=== PATIENT | female | born 1940 | race African-American/Black ===

== ENCOUNTER 2016-05-25 13:39 | Emergency (ER) | payer OTHER ==
--- NOTE | 2016-05-25 15:23 | PROVIDER DOCUMENTATION ---
HPI-Musculoskeletal Pain/Inj - GENERAL Source: patient - HX OF PRESENT ILLNESS-MUSKULOSKELTAL Quality of Pain: reports: sharp Severity in ED: mild Onset/Duration: just prior to arrival Timing: still present Similar Symptoms Previously?: No Recently seen or treated by another doctor?: No - FALL INJURY Location of Pain/Injury: reports: head (forehead), face (eyes) Reason for Fall: reports: slipped Loss of Consciousness: no loss of consciousness Injury Associated Symptoms: reports: denies symptoms <Cindy Liu - Last Filed: 05/25/16 15:51> <Jeancarlos Gibbons - Last Filed: 05/25/16 16:51> - GENERAL Chief Complaint: Head Injury Stated Complaint: FALL/MARRUFO,HEAD INJURY,EYE SWOLLEN Time Seen by Provider: 05/25/16 14:20 - HX OF PRESENT ILLNESS-MUSKULOSKELTAL Nature of Presenting Problem: PT is a 75 yof who came to the ED with a cc of falling and hitting her head. Pt reports this morning she was walking to the bathroom when she slipped and fell and hit her face on the night stand. (Cindy Liu) Review of Systems - Adult - REVIEW OF SYSTEMS - ADULT Constitutional: denies: chills, fever Eyes: reports: blurred vision, other (hematoma on left eye). denies: decreased vision, double vision Ears, Nose, Mouth & Throat: denies: sinus problem, mouth/dental pain Musculoskeletal: reports: other (hemotoma on forehead). denies: joint swelling , muscle aches <Cindy Liu - Last Filed: 05/25/16 15:51> Past History - Adult - PAST MEDICAL HISTORY-ADULT Review of Records: reports: Old Records Reviewed, Nursing Assessment Review Major Childhood Illnesses: reports: denies history Cardiovascular: reports: CAD, HTN, hyperlipidemia Respiratory: reports: sleep apnea Gastrointestinal: reports: GERD Neurological: reports: TIA Psychiatric: reports: anxiety, depression Endocrine/Immune: reports: Diabetes, thyroid disorder (hypo) - PRIOR SURGERIES/PROCEDURES Surgical/Procedure History: reports: recent surgery (parathyroid), CABG, cholecystectomy, cardiac stent, hysterectomy, breast (reduction) - IMMUNIZATION STATUS Childhood Immunizations: See Nurse Assessment Flu Vaccine: See Nurse Assessment <Cindy Liu - Last Filed: 05/25/16 15:51> Physical Exam-Injury Related - Physical Exam-Injury Related Initial Vital Signs Reviewed: Yes General Appearance: alert, no apparent distress Eyes: other (hematoma on left eye) Head, Ears, Nose, Mouth & Throat: other (hematoma on middle of forehead) Neck: non-tender, full range of motion Respiratory: chest non-tender, lungs clear Cardiovascular: normal peripheral pulses, regular rate, rhythm Abdominal Exam: normal bowel sounds, non tender Back Exam: normal inspection Extremity: normal range of motion, non-tender Integumentary: warm/dry Neurologic: grossly normal Psych/Mental Status: normal mood/affect, normal thought content, normal thought process, oriented x 3 <Cindy Liu - Last Filed: 05/25/16 15:51> Progress - CT/MRI 1 CT Study: Head (frontal scalp hematoma) <Cindy Liu - Last Filed: 05/25/16 15:51> <Jeancarlos Gibbons - Last Filed: 05/25/16 16:51> - PLAN OF CARE/RESULTS Progress/Plan/Lab Results: Vital Signs - 24 hr 05/25/16 13:50 Temperature 97.8 F Pulse Rate 78 Respiratory 20 Rate Blood Pressure 120/99 O2 Sat by Pulse 98 Oximetry Orders Category Date Time Status HEAD W/O CONTRAST [CT] Stat Exams 05/25/16 14:24 Taken CBC WITH ELECTRONIC DIFF [HEME] Stat Lab 05/25/16 14:25 Uncollected CMP [COMPREHENSIVE METABOLIC PANEL] [CHEM] Stat Lab 05/25/16 14:25 Uncollected (Cindy Liu) Departure - Departure Time of Disposition Order: 15:51 Certified Medical Emergency: Emergent <Cindy Liu - Last Filed: 05/25/16 15:51> - Departure Time of Disposition Order: 16:51 Certified Medical Emergency: Emergent <Jeancarlos Gibbons - Last Filed: 05/25/16 16:51> - Departure DIAGNOSIS: Black eye of left side Hematoma of frontal scalp Qualifiers: Encounter type: initial encounter Qualified Code(s): S00.03XA - Contusion of scalp, initial encounter Disposition: HOME 01 Condition: Stable Referrals: Abdoul Allen CRNP [Primary Care Provider] - Attestation - Scribe Verification/Attestation Scribe:: Cindy Liu Acting as Scribe for:: Jeancarlos Gibbons Scribe documention review:: This chart was documented by a scribe and accurately reflects the service the provider performed and the decisions made by the provider. <Cindy Liu - Last Filed: 05/25/16 15:51> Physician Attestation
--- NOTE | 2016-05-25 15:37 | Diag Imaging Result Document ---
PROCEDURE NAME: HEAD W/O CONTRAST - 05/25/2016 CT HEAD WITHOUT CONTRAST: COMPARISON: 02/24/2010. FINDINGS: There is patchy low attenuation in the periventricular and subcortical white matter that is stable indicating moderate microangiopathy. There is no discrete intracranial mass, mass effect, or intracranial hemorrhage. There is no hydrocephalus. There is no evidence of acute infarct. There is a subgaleal hematoma involving the scalp at the forehead. The calvaria is grossly intact. IMPRESSION: 1. Stable chronic changes as described, but no evidence of acute intracranial pathology. 2. Frontal scalp hematoma.
[2016-05-25] MEDS ORDERED: TYLENOL PO ONE (16:03)
[2016-05-25 16:13] LABS: MANUAL DIFF NEEDED? NO
[2016-05-25] MEDS ORDERED: TYLENOL ONE (16:23)
[2016-05-25 16:27] LABS: BASO% 0.2 % (0.0-0.8); EOS# 0.16 X1000 (0.0-0.7); EOS% 1.7 % (0.0-10.0); HEMATOCRIT 40.4 % (37.0-47.0); HEMOGLOBIN 13.2 g/dL (12.0-16.0); IMM GRAN# 0.02 X1000 (0.0-0.04); IMM GRAN% 0.2 % (0.0-0.5); LYMPH# 1.87 X1000 (1.2-3.4); LYMPH% 19.9 % (20.5-51.1); MCH 31.3 PG (27-31); MCHC 32.7 g/dL (33-37); MCV 95.7 FL (81-99); MONO# 0.71 X1000 (0.11-0.59); MONO% 7.6 % (1.7-9.3); MPV 11.3 FL (7.4-10.4); NEUT% 70.4 % (42.2-75.2); PLT 205 X1000 (130-400); RBC 4.22 XMIL (4.2-5.4)
[2016-05-25 16:40] LABS: ALBUMIN 3.6 g/dL (3.5-5.0); CALCIUM 8.9 mg/dL (8.8-10.2); POTASSIUM 3.7 mmol/L (3.5-5.1); TOTAL BILIRUBIN 0.42 mg/dL (0.20-1.00); TOTAL PROTEIN 6.1 g/dL (6.3-8.3)
[2016-05-25 17:03] VITALS: BP 188/88
== END 2016-05-25 17:24 | disposition home or self-care (01) ==
LOC: ED 13:39
DX: S00.03XA Contusion of scalp, initial encounter (principal); S00.12XA Contusion of left eyelid and periocular area, initial encounter; R51 Headache; R22.0 Localized swelling, mass and lump, head; I25.10 Atherosclerotic heart disease of native coronary artery without angina pectoris; I10 Essential (primary) hypertension; E78.5 Hyperlipidemia, unspecified; K21.9 Gastro-esophageal reflux disease without esophagitis; Z79.899 Other long term (current) drug therapy; E11.9 Type 2 diabetes mellitus without complications; E03.9 Hypothyroidism, unspecified; Z79.02 Long term (current) use of antithrombotics/antiplatelets; Z79.4 Long term (current) use of insulin; Z95.1 Presence of aortocoronary bypass graft; Z95.5 Presence of coronary angioplasty implant and graft; W01.190A Fall on same level from slipping, tripping and stumbling with subsequent striking against furniture, initial encounter
CPT/HCPCS: 70450; 80053; 85025

== ENCOUNTER 2016-11-25 22:46 | Inpatient (IN) ==
[2016-11-25 23:56] LABS: URINE CULTURE NEEDED? NO; URINE MICRO REVIEW NEEDED? NO; URINE SOURCE CLEAN CATCH
[2016-11-26 00:26] LABS: BILIRUBIN URINE NEGATIVE (NEGATIVE); BLOOD URINE NEGATIVE (NEGATIVE); COLOR YELLOW; GLUCOSE URINE 70 mg/dL (NEGATIVE); LEUKOCYTES URINE NEGATIVE (NEGATIVE); NITRITE URINE NEGATIVE (NEGATIVE); PH URINE 6.5; PROTEIN URINE NEGATIVE (NEGATIVE); SP GRAVITY URINE 1.007; TURBIDITY URINE CLEAR (CLEAR); UR EPITHELIAL CELLS <10 /HPF (<10); URINE BACTERIA NEGATIVE /HPF; URINE RBC <10 /HPF (<10); URINE WBC <10 /HPF (<10); UROBILINOGEN URINE NORMAL (NORMAL)
[2016-11-26 00:40] LABS: UR AMPHETAMINES QUAL NONE DETECTED (NONE DETECT); UR BARBITUATES QUAL NONE DETECTED (NONE DETECT); UR BENZODIAZEPIN QUAL NONE DETECTED (NONE DETECT); UR CANNABINOIDS QUAL NONE DETECTED (NONE DETECT); UR COCAINE QUAL NONE DETECTED (NONE DETECT); UR METHADONE QUAL NONE DETECTED (NONE DETECT); UR OPIATES QUAL NONE DETECTED (NONE DETECT); UR OXYCODONE QUAL NONE DETECTED (NONE DETECT); UR PCP QUAL NONE DETECTED (NONE DETECT)
[2016-11-26 00:50] LABS: MANUAL DIFF NEEDED? NO
[2016-11-26 00:55] LABS: BASO% 0.1 % (0.0-0.8); EOS# 0.09 X1000 (0.0-0.7); EOS% 0.8 % (0.0-10.0); HEMATOCRIT 40.6 % (37.0-47.0); HEMOGLOBIN 13.5 g/dL (12.0-16.0); IMM GRAN# 0.03 X1000 (0.0-0.04); IMM GRAN% 0.3 % (0.0-0.5); LYMPH# 1.74 X1000 (1.2-3.4); MCH 31.5 PG (27-31); MCHC 33.3 g/dL (33-37); MCV 94.6 FL (81-99); MONO# 0.76 X1000 (0.11-0.59); MPV 11.8 FL (7.4-10.4); NEUT% 75.8 % (42.2-75.2); PLT 221 X1000 (130-400); RBC 4.29 XMIL (4.2-5.4)
[2016-11-26 01:04] LABS: PROTIME 10.5 Seconds (9.2-11.7); PTT 22.7 Seconds (22.0-36.0)
--- NOTE | 2016-11-26 04:06 | PROVIDER DOCUMENTATION ---
This chart was entered by Madonna Malik Scribe, acting as scribe for John De La O MD. HPI-Neurological Disorder - General Chief Complaint: General Adult Stated Complaint: HYPOGLYCEMIA Time Seen by Provider: 11/25/16 22:57 Source: patient Allergies/Adverse Reactions: Patient Allergies Allergy/AdvReac Type Severity Reaction Status Date / Time Penicillins Allergy ITCHING Verified 07/25/15 06:34 Home Medications: Home Medication List Medication Instructions Recorded Confirmed Last Taken Type Atorvastatin Calcium 20 mg PO QHS 09/14/13 05/25/16 05/24/16 20:00 History Levothyroxine Sodium [Synthroid] 125 mcg PO DAILY 09/14/13 05/25/16 05/24/16 08: 00 History Losartan [Cozaar] 100 mg PO DAILY 09/14/13 05/25/16 05/24/16 08:00 History Pantoprazole [Protonix] 100 mg PO DAILY 09/14/13 05/25/16 05/24/16 08:00 History Clopidogrel Bisulfate [Plavix] 75 mg PO QAM 12/18/13 05/25/16 05/24/16 08:00 History Acetaminophen [Tylenol] 650 mg PO Q6H PRN PRN #0 tablet 01/30/15 05/25/16 Rx Insulin Aspart [Novolog] 25.2 unit SQ DAILY 04/23/15 05/25/16 05/25/16 08:00 History Isosorbide Mononitrate E.r. [Imdur] 60 mg PO DAILY #0 tablet 07/26/15 05/25/16 05/24/16 08:00 Rx Ranolazine E.r. [Ranexa] 500 mg PO BID #0 tablet 07/26/15 05/25/16 05/24/16 20: 00 Rx Carvedilol [Coreg] 12.5 mg PO BID 05/25/16 05/25/16 05/24/16 08:00 History Cholecalciferol (Vitamin D3) 2,000 unit PO DAILY 05/25/16 05/25/16 05/24/16 08: 00 History [Vitamin D3] Gabapentin 100 mg PO Q6HR 05/25/16 05/25/16 05/24/16 20:00 History Memantine HCl [Namenda] 25 mg PO DAILY 05/25/16 05/25/16 05/24/16 08:00 History - History of Present Illness-Neuro Nature of Presenting Problem: 76 Y/O F presents to ED with Neurological. Pt states that she had numbness on her right side , states that yesterday she had pain in neck that radiated into her head, around 6pm went away and come back. Pt had a reported Low glucose of 52 in EMS. Pt states that she had a headache, has prescription for Tramadol and took it. Pt c/o of blurred vision, no photophobia or slurred speech. Pt has a hx of TIA's states balance issues. Pt states that her rt leg is numb and rt arm is tingling with numbness. Pt states that she takes an 81 mg Aspirin a day. Headache Location: reports: frontal Severity: reports: moderate Onset/Duration: reports: this evening Timing: reports: still present Context: reports: low blood sugar Character of Altered Mental Status: reports: N/A Character of Deficits: reports: new weakness New weakness or altered sensation location:: reports: RUE, RLE Cognitive Baseline: alert, oriented x3 Gait Baseline: walks without assistance Associated Symptoms: reports: headache, neck/back pain, weakness. denies: nausea, vomiting Similar Symptoms Previously?: Yes Recently seen or treated by another doctor?: No Review of Systems - Adult - REVIEW OF SYSTEMS - ADULT Constitutional: denies: chills, fever Eyes: reports: no symptoms reported Ears, Nose, Mouth & Throat: reports: no symptoms reported Cardiovascular: reports: no symptoms reported Respiratory: reports: no symptoms reported Gastrointestinal: reports: no symptoms reported Genitourinary: reports: no symptoms reported Musculoskeletal: reports: no symptoms reported Integumentary: reports: no symptoms reported Neurological: reports: headache/migraines, numbness. denies: slurred speech Psychiatric: reports: no symptoms reported Endocrine: reports: no symptoms reported Hematologic/Lymphatic: reports: no symptoms reported Allergic/Immunologic: reports: no symptoms reported All Other Systems: Reviewed and Negative Past History - Adult - PAST MEDICAL HISTORY-ADULT Review of Records: reports: Old Records Reviewed, Nursing Assessment Review, Medications Reviewed, Social history reviewed & non-contributory. Major Childhood Illnesses: reports: denies history Cardiovascular: reports: CAD, HTN, hyperlipidemia Respiratory: reports: sleep apnea Gastrointestinal: reports: GERD Neurological: reports: TIA Psychiatric: reports: anxiety, depression Endocrine/Immune: reports: Diabetes, thyroid disorder (hypo) - PRIOR SURGERIES/PROCEDURES Surgical/Procedure History: reports: recent surgery (parathyroid), CABG, cholecystectomy, cardiac stent, hysterectomy, breast (reduction) - IMMUNIZATION STATUS Childhood Immunizations: See Nurse Assessment Flu Vaccine: See Nurse Assessment - SOCIAL HISTORY Smoking: non-smoker Substance Use: none/never Alcohol Use Frequency: never Physical Exam- Neurological - Physical Exam-Neuro General Appearance: alert, no apparent distress Eye Exam: bilateral eye: normal inspection, PERRL, EOMI HENMT: moist mucous membranes, normal ENT inspection, TMs normal, pharynx normal Head Injury: no evidence of injury Neck: full range of motion, supple, normal inspection, other (tender lymphnodes) Respiratory: chest non-tender, lungs clear, normal breath sounds Cardiovascular: normal peripheral pulses, regular rate, rhythm, no edema, no gallop, no JVD, no murmur Abdominal Exam: normal bowel sounds, non tender, soft Lymphatic: no adenopathy Extremity: normal range of motion, non-tender, 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 negative: abnormal speech, facial asymmetry, facial droop, facial paresthesias, facial weakness, gaze palsy , hearing deficit (R), hearing deficit (L), tongue deviation to R, tongue deviation to L Coordination/Gait: normal finger to nose, normal gait Motor/Sensory: sensory deficit (right side laterally), weak motor strength RUE, weak motor strength RLE Neurologic: grossly normal Integumentary: normal color, normal turgor, warm/dry Psych/Mental Status: normal mood/affect, normal thought content, normal thought process, oriented x 3 - Glascow Coma Scale Best Eye Response: (4) open spontaneously Best Verbal Response: (5) oriented Best Motor Response: (6) obeys commands Total Glascow Score: 15 Progress - PLAN OF CARE/RESULTS Progress/Plan/Lab Results: Vital Signs - 8 hr 11/25/16 23:10 11/26/16 01:12 Temperature 97.8 F Pulse Rate 60 61 Respiratory Rate 15 13 Blood Pressure 102/52 119/58 O2 Sat by Pulse Oximetry 100 91 L Laboratory Results - last 24 hr 11/25/16 11/25/16 11/25/16 23:00 23:00 23:08 WBC RBC Hgb Hct MCV MCH MCHC RDW Std Deviation Plt Count MPV Immature Gran % (Auto) Neut % (Auto) Lymph % (Auto) [place] % (Auto) Eos % (Auto) Baso % (Auto) Immature Gran # (Auto) Neut # (Auto) Lymph # (Auto) [place] # (Auto) Eos # (Auto) Baso # (Auto) PT INR PTT (Actin FS) POC Glucose 87 Urine Source CLEAN CATCH Urine Color YELLOW Urine Turbidity CLEAR Urine pH 6.5 Ur Specific [place] 1.007 Urine Protein NEGATIVE Ur Glucose (Stick) 70 A Ur Ketones (Stick) NEGATIVE Urine Blood NEGATIVE Urine Nitrite NEGATIVE Urine Bilirubin NEGATIVE Urobilinogen Dipstick NORMAL Urine Leukocytes NEGATIVE Urine WBC (Auto) <10 Urine RBC (Auto) <10 U Epithel Cells (Auto) <10 Urine Bacteria (Auto) NEGATIVE Urine Opiates Screen NONE DETECTED Ur Oxycodone Screen NONE DETECTED Ur Methadone, Qual NONE DETECTED Ur Barbiturates Screen NONE DETECTED Ur Phencyclidine Scrn NONE DETECTED Ur Amphetamines Screen NONE DETECTED U Benzodiazepines Scrn NONE DETECTED Urine Cocaine Screen NONE DETECTED U Cannabinoids Screen NONE DETECTED 11/26/16 11/26/16 00:40 00:40 WBC 10.90 H RBC 4.29 Hgb 13.5 Hct 40.6 MCV 94.6 MCH 31.5 H MCHC 33.3 RDW Std Deviation 12.7 Plt Count 221 MPV 11.8 H Immature Gran % (Auto) 0.3 Neut % (Auto) 75.8 H Lymph % (Auto) 16.0 L [place] % (Auto) 7.0 Eos % (Auto) 0.8 Baso % (Auto) 0.1 Immature Gran # (Auto) 0.03 Neut # (Auto) 8.27 H Lymph # (Auto) 1.74 [place] # (Auto) 0.76 H Eos # (Auto) 0.09 Baso # (Auto) 0.01 PT 10.5 INR 1.00 PTT (Actin FS) 22.7 POC Glucose Urine Source Urine Color Urine Turbidity Urine pH Ur Specific [place] Urine Protein Ur Glucose (Stick) Ur Ketones (Stick) Urine Blood Urine Nitrite Urine Bilirubin Urobilinogen Dipstick Urine Leukocytes Urine WBC (Auto) Urine RBC (Auto) U Epithel Cells (Auto) Urine Bacteria (Auto) Urine Opiates Screen Ur Oxycodone Screen Ur Methadone, Qual Ur Barbiturates Screen Ur Phencyclidine Scrn Ur Amphetamines Screen U Benzodiazepines Scrn Urine Cocaine Screen U Cannabinoids Screen Orders Category Date Time Status Cardiac Monitoring DIRECTED Care 11/25/16 23:46 Active Finger Stick Blood Sugar (ED) DIRECTED Care 11/25/16 23:46 Active Saline Loc NOW Care 11/25/16 23:46 Active CHEST-PORTABLE [RAD] Stat Exams 11/26/16 00:[address] HEAD W/O CONTRAST [CT] Stat Exams 11/25/16 23:46 Taken CBC WITH ELECTRONIC DIFF [HEME] Stat Lab 11/26/16 00:40 Completed COMPREHENSIVE METABOLIC PANEL [CHEM] Stat Lab 11/26/16 00:40 Received PROTIME WITH INR [COAG] Stat Lab 11/26/16 00:40 Completed PTT [COAG] Stat Lab 11/26/16 00:40 Completed TROPONIN T Stat Lab 11/26/16 00:40 Received URINALYSIS W/POSS RFLX CULT-1 [URINALYSIS] Stat Lab 11/25/16 23:00 Completed URINE DRUG SCREEN Stat Lab 11/25/16 23:00 Completed EKG [EKG] Stat Ther 11/25/16 23:46 Ordered Result Diagrams: 11/26/16 00:40 - EKG 1 Time of EKG reading by physician:: 22:54 EKG Read and Signed by:: John De La O EKG Interpretation (*Must complete 3 of following elements*): Normal Rate: 61 Rhythm: NSR Comments: Abnormal ECG, Possible left atrial enlargment, ST&T wave abnormality - CT/MRI 1 CT Study: Head Impression: Normal CT Results: No acute findings Departure - Departure Date of Disposition Decision: 11/26/16 Time of Disposition Decision: 03:00 DIAGNOSIS: CVA (cerebral vascular accident) Qualifiers: CVA mechanism: unspecified Qualified Code(s): I63.9 - Cerebral infarction, unspecified Disposition: ADMITTED INPATIENT 09 Certified Medical Emergency: Emergent Condition: Fair Referrals and Follow-Ups: None,PCP [Primary Care Provider] - - Critical Care Note This patient required my direct & personal management of CC.: No Attestation - Physician/ ARAM Attestation Patient care was provided by Advanced Practice Provider:: No The physician spent face to face time with patient:: Yes Advanced Practice Provider documentation review:: Supervising physician onsite and consulted in the evaluation and care of this patient. The physician did have a face to face encounter with the patient. This chart was documented by the indicated scribe, (Madonna Malik Scribe) and accurately reflects the services I performed and decisions made by me, John De La O MD, as attested by the provider's signature.
[2016-11-26 04:16] LABS: ALBUMIN 4.2 g/dL (3.5-5.0); POTASSIUM 4.2 mmol/L (3.5-5.1); TOTAL BILIRUBIN 0.47 mg/dL (0.20-1.00); TOTAL PROTEIN 7.1 g/dL (6.3-8.3)
--- NOTE | 2016-11-26 05:19 | EKG Report ---
Test Performed on : 11/25/2016 10:54:00 PM Test Reason : Stroke like symptoms Blood Pressure : / mmHG Vent. Rate : 061 BPM Atrial Rate : 061 BPM P-R Int : 166 ms QRS Dur : 094 ms QT Int : 454 ms P-R-T Axes : 038 035 100 degrees QTc Int : 457 ms Normal sinus rhythm. Possible Left atrial enlargement ST \T\ T wave abnormality, consider lateral ischemia Abnormal ECG When compared with ECG of 26-JUL-2015 07:45, T wave inversion less evident in Anterior leads Unconfirmed Result
[2016-11-26] MEDS ORDERED: TYLENOL PO PRN (06:33)
[2016-11-26] MEDS ORDERED: ULTRAM PO PRN (06:34)
[2016-11-26] MEDS ORDERED: D50W SYRINGE IV PRN (06:35)
[2016-11-26] MEDS ORDERED: ZOFRAN IV PRN (06:36)
--- NOTE | 2016-11-26 06:44 | EKG Report ---
Test Performed on : 11/26/2016 06:23:35 AM Test Reason : r/o tia Blood Pressure : / mmHG Vent. Rate : 072 BPM Atrial Rate : 072 BPM P-R Int : 168 ms QRS Dur : 094 ms QT Int : 446 ms P-R-T Axes : 045 070 058 degrees QTc Int : 488 ms Normal sinus rhythm. Nonspecific ST abnormality Abnormal ECG When compared with ECG of 25-NOV-2016 22:54, (Unconfirmed) T wave inversion no longer evident in Anterolateral leads Confirmed by Filemon Gibbs MD ([id number]) on 11/26/2016 7:02:12 PM
--- NOTE | 2016-11-26 06:45 | HISTORY AND PHYSICAL ---
CHIEF COMPLAINT: Right-sided neck pain with headache. PRIMARY CARE DOCTOR: None at this time. PRIMARY NEUROLOGIST: Is Dr. Bellamy. HPI: Ms. Cr is a very pleasant 76-year-old, female who presented to the emergency room tonight after the day before yesterday having right neck pain that radiated up into her head causing a headache. It was a constant, sharp 6/10 pain that was worse with turning her head. The headache was noted as a dull something type headache, radiating to head with a headache. She took an Ultram 50 mg and this relieved the pain. Today, she woke up and went to work where she works just a few hours a day at [employer]. She stated when she got home the pain started again in her right-sided neck again radiating into her head. This time accompanied with blurred vision and numbness in her right leg and right arm. So , she came into the emergency room. In the emergency room a CT of her head was obtained, which was read by the ER provider as NAD. She has a history of diabetes mellitus type 1, chronic kidney disease, hypertension, hyperlipidemia, hypothyroidism, coronary artery disease status post quadruple bypass and cardiac stenting x2, congestive heart failure. Unknown what her ejection fraction is at this time as well as, TIA x2. So it is concerning that this patient has had these type of symptoms. The laboratory data was obtained which was grossly normal. The patient's BUN and creatinine was noted to be elevated however I believe at her baseline of 24 and 1.5 but as noted, she does have a diagnosis of chronic kidney disease. Her glucose was also noted as being 42. She is diabetic and it was unknown if she recognized that her blood sugar was low before coming in. At any rate, her pain has subsided at this time. It was tender to palpation on the examination in the side of the C-spine or the trapezius muscle on the right side. She denied any kind of trauma or lifting anything heavy prior to these incidents. The patient will be admitted to the medical floor for further evaluation and treatment. PAST MEDICAL HISTORY: See HPI. PREVIOUS SURGICAL HISTORY: 1. A quadruple bypass. 2. Cardiac stenting x2. 3. Partial parathyroidectomy. 4. Thyroid cyst removal. 5. Cholecystectomy. 6. D and C x2. 7. Hysterectomy. SOCIAL HISTORY: Lives home alone with 1 dog. She works at [employer] limited hours daily. Denies tobacco, alcohol or illicit drug use or abuse. FAMILY HISTORY: Mother had multiple CVAs but ultimately in her 90s from a CVA. Father had congestive heart failure and from this. ALLERGIES: Penicillin causing rash. HOME MEDICATIONS: The list was not fully compiled however home medications the patient does take is Ultram 50 mg p.o. q.6 p.r.n. pain, Plavix 75 mg daily p.o., aspirin 81 mg p.o. daily and Synthroid 125 mcg daily p.o. An order was placed for nursing to reconcile full list of patient's home medications and place on the chart for rounding a.m. physician. REVIEW OF SYSTEMS: Fourteen point review of systems conducted with the patient. Pertinent positives listed above in the HPI. All other systems reviewed and found to be negative. PHYSICAL EXAMINATION: VITAL SIGNS: Temperature 97.8 degrees, pulse 61, blood pressure 102/52, oxygen saturation 100% on room air. GENERAL: Very pleasant, 76-year-old female, well developed, well nourished, lying in the ER stretcher. Answers all questions appropriately. HEENT: Head is atraumatic, normocephalic. Pupils equal, round, reactive to light. Extraocular eye movement intact. Sclerae is anicteric. Subconjunctival is pink. Oral mucosa is moist. NECK: Supple. No JVD. No thyromegaly. Trachea is midline. No cervical lymphadenopathy. CARDIAC: S1, S2 appreciated. No murmurs, gallops, or rubs. LUNGS: Clear to auscultation bilaterally. No rhonchi, wheezes or rales. Symmetrical rise and fall with respirations. ABDOMEN: Soft, nondistended, nontender. Bowel sounds present in all 4 quadrants. Normoactive. No pulsatile mass. No organomegaly. EXTREMITIES: No clubbing, cyanosis, 2+ pitting edema bilateral lower extremities. 1+ pedal pulses bilaterally. NEUROLOGICAL: Awake, alert and oriented x3. Answers all questions appropriately. Cranial nerves 2-12 are intact. Right-sided upper extremity strength 3/5. Left upper extremity strength 5/5. 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 Face is noted to be symmetrical. No palmar drift. LABORATORY DATA: WBC 10.90, hemoglobin 13.5, hematocrit 40.6, platelet count 221,000. Coags within normal limits. Sodium 145, potassium 4.2. Chloride of 105. Carbon dioxide 28. BUN 24, creatinine 1.5, glucose 42. Urine unremarkable. Toxicology screen is negative. CT of the head noted as NAD. ASSESSMENT AND PLAN: 1. TIA versus CVA. If it were a CVA, possible brainstem. Patient's symptoms have resolved at this time. We will check MRI of the brain and neck, C-spine, carotid ultrasound and echocardiogram in a.m. Consult Dr. Archer. 2. Chronic kidney disease stage 3. The patient's baseline creatinine is 1.2- 1.5. 3. Coronary artery disease with multiple stents and bypass surgery. Continue patient's Plavix and aspirin. 4. Hyperlipidemia, continue statin. 5. Hypothyroidism, continue Synthroid 125 mcg p.o. daily. 6. Hypertension. A full list of patient medications have not been reconciled. An order was placed for these to be reconciled. We will restart medications when appropriate. Further recommendations per patient clinical course. Dictated by DAMIAN Zavaleta for Shankar Allen MD I performed an independent assessment plan of this patient and agree with above plan. This patient's situation is made complex by the fact that she is already on DAPT and still having these symptoms. If MRI is + for cerebrovascular disease, she may need to go on Aggrenox if she can tolerate this. cc: DAMIAN Zavaleta MD Christopher C. Laganke, MD Russell T. Barr, MD Dr. Schmidt MTDD
[2016-11-26] MEDS ORDERED: HUMALOG SUBQ SCH (07:00)
--- NOTE | 2016-11-26 07:08 | Diag Imaging Result Doc PS360 ---
EXAM: CHEST-PORTABLE HISTORY: stroke like symptoms TECHNIQUE: Erect AP portable at 0015 COMMENT: Compared to 07/25/2015 there has been no significant change in the appearance of the chest. IMPRESSION: Stable chest. Electronically signed by Tim Rockwell 11/26/2016 7:06 AM
--- NOTE | 2016-11-26 07:23 | Diag Imaging Result Doc PS360 ---
CT HEAD W/O CONTRAST - 11/25/2016 INDICATION: stroke like symptoms TECHNIQUE: A CT dose reduction protocol was used. COMPARISON: 08/05/2016 FINDINGS: The ventricles and sulci are normal in size and contour. Stable mild periventricular white matter hypodensity compatible with chronic microvascular disease. No intracranial mass or hemorrhage. The skull is intact. The sinuses, mastoids, and middle ears are clear. IMPRESSION: Negative exam. Electronically signed by Heath Lr 11/26/2016 7:20 AM
[2016-11-26 07:28] LABS: MANUAL DIFF NEEDED? NO
[2016-11-26 07:32] LABS: BASO% 0.1 % (0.0-0.8); EOS# 0.09 X1000 (0.0-0.7); EOS% 1.1 % (0.0-10.0); HEMOGLOBIN 13.3 g/dL (12.0-16.0); LYMPH% 21.2 % (20.5-51.1); MCH 31.6 PG (27-31); MCHC 33.3 g/dL (33-37); MONO# 0.64 X1000 (0.11-0.59); MPV 11.4 FL (7.4-10.4); NEUT% 69.6 % (42.2-75.2); PLT 186 X1000 (130-400); RBC 4.21 XMIL (4.2-5.4)
[2016-11-26 07:56] LABS: CALCIUM 9.2 mg/dL (8.8-10.2); POTASSIUM 3.7 mmol/L (3.5-5.1)
[2016-11-26] MEDS: HEPARIN SUBQ SCH ×2 (09:27→17:53)
[2016-11-26] MEDS: PLAVIX PO SCH (09:28)
[2016-11-26] MEDS: HUMULIN R SUBQ SCH ×4 (09:28→21:00)
[2016-11-26] MEDS: SYNTHROID PO SCH (09:28)
[2016-11-26] MEDS: PRILOSEC PO SCH (09:28)
[2016-11-26] MEDS: ASPIRIN PO SCH (09:28)
[2016-11-26] MEDS: RANEXA PO SCH ×2 (09:29→21:00)
--- NOTE | 2016-11-26 09:49 | Diag Imaging Result Doc PS360 ---
MRI BRAIN W/O CONTRAST - 11/26/2016 INDICATION: cva COMPARISON: Head CT from yesterday FINDINGS: There is no area of restricted diffusion. There is moderate periventricular and subcortical microvascular disease throughout the cerebral hemispheres bilaterally. No intracranial mass or hemorrhage. Midline structures are intact. IMPRESSION: No acute disease. Electronically signed by Heath Lr 11/26/2016 9:46 AM
--- NOTE | 2016-11-26 09:56 | Diag Imaging Result Doc PS360 ---
MRI CERVICAL SPINE W/O CONTRAS - 11/26/2016 INDICATION: MS, Cspine injury TECHNIQUE: COMPARISON: None FINDINGS: Alignment is straightened. No fracture or subluxation. Vertebral body heights are preserved. The brainstem and cervical cord are normal in signal. Soft tissues are clear. At C2-3 there is a mild disc bulge but no stenosis. At C3-4 there is a moderate disc bulge but no stenosis. At C4-5 there is a moderate disc bulge but no stenosis. At C5-6 there is a large disc bulge causing moderate central canal stenosis. At C6-7 there is a significant disc bulge causing mild central canal stenosis. At C7-T1 the level is normal. IMPRESSION: Cervical spondylosis. No acute injury. Electronically signed by Heath Lr 11/26/2016 9:54 AM
[2016-11-26] MEDS ORDERED: ATIVAN PO PRN (13:24)
--- NOTE | 2016-11-26 15:15 | CONSULTATION ---
DATE OF CONSULTATION: 11/26/2016 SUBJECTIVE: Ms. Cr is 76 years old, and she has had some neck pain and right limb symptoms, raising question of [employer] ischemic event. History from the patient is that she noticed, 2 days ago, tingling and pain in the right side of her neck, traveling to the right occiput. She had some tingling and pain in the right limbs. She took some tramadol, rested and felt better. Symptoms returned last afternoon and, this time, there was numbness and weakness in the right arm and leg, leg initially. She did not notice any changes in speech, trouble chewing or swallowing, change in facial appearance. Vision was blurred globally, without focal features, for a short time. Right arm symptoms resolved overnight. She reports her right leg still feels a little bit numb, but is improved. She reports thinking that she has been weak on the right side for the last few years. She reports "TIA", diagnosed when she presented with sudden poor balance and history of falling. This was several years ago. She believes she did not get completely recovered from that. She did not notice any certain focal neurologic feature then, but eventually thought right side may be weak. She is followed in [place] for that problem. Otherwise, she has not had diagnosed stroke, TIA, seizure, other neurologic event. She has had some neck pain, off and on, but she does not report definite radicular symptoms.. PAST MEDICAL HISTORY: She has a past history of diabetes mellitus, kidney disease, neuropathy, dyslipidemia, hypertension, ischemic heart disease, CABG, heart failure, hypothyroidism. MEDICATIONS: List reviewed. She reports no recent medication changes. VITAL SIGNS: She presented with heart rate in the 60s and 70s, and that has been stable. Initial systolic blood pressure was recorded 102, later 174. She has been afebrile. DIAGNOSTICS: Urine drug screen was all negative. Lab showed sodium 146, BUN 22 , creatinine 1.3. She reports EMT checked blood sugar before transport and it was 52. One of the other notes indicates blood sugar was 42. On arrival here, blood sugar was 87, and later up to 130s. She had brain MRI done in June for dizziness, and that showed only usual changes, nothing focal or acute. This time, noncontrast CT on admission yesterday was unremarkable. Cervical MRI this morning shows diffuse degenerative changes, but no abnormal cord signal, and no definite evidence of right cervical nerve root impingement. Brain MRI without contrast this morning shows only old ischemic change, nothing focal or acute. PHYSICAL EXAMINATION: On exam now, Ms. Cr is awake, alert, attentive, appropriate, conversant. Speech is not dysarthric. Language function is intact. Memory seems good. I did not test cognitive function thoroughly. head: Unremarkable. neck: She has good range of motion in the neck. There is no paraspinal spasm. Spurling's and Lhermitte's signs are not present. neurologic: She has full visual field, tested grossly by confrontational finger counting. Extraocular movements are full. Facial motility is good bilaterally. She has good pinprick and light touch appreciation over the face. Gag is intact. Tongue is midline. She can hear. Shoulder shrug is good bilaterally. Strength is normal in the arms and legs. There was no pronator drift. Tone is equal in the limbs. She did well on [id number] testing bilaterally. She reports diminished pinprick appreciation in a stocking pattern bilaterally. She has equal pinprick and light touch appreciation over the palms. I did not test her gait. Reflexes are absent at the ankles, 2+ at the knees, 1+ symmetrically at the wrists. IMPRESSION: Episode of right neck and head pain, right limb numbness and subjective weakness. No definite objective deficit on exam now. No definite findings on imaging of the neck and brain. She has risk factors for cerebrovascular ischemic problems, but I do not see definite evidence of an acute ischemic event this time. She has clinical evidence of peripheral neuropathy, presumed diabetic neuropathy, which may contribute to her interpretation of symptoms. At this point, I do not have any urgent suggestion. I would continue aggressive management of her blood sugar, resume treating blood pressure, continue her statin, continue aspirin and clopidogrel dual-antiplatelet therapy, with close attention to bleeding risk. Thanks for asking me to see Ms. Cr. cc: MD Omero Aguilar III, MD MTDD
--- NOTE | 2016-11-26 16:10 | ECHO REPORT ---
ORDER DATE: 11/26/2016 INTERPRETING PHYSICIAN: Dr. Conrad Mariee. ECHOCARDIOGRAPHIC MEASUREMENTS: 1. Interventricular septum: 1.7 cm. 2. Left ventricular posterior wall: 1.3 cm. 3. Diastolic diameter: 3.8 cm. 4. Left atrium: 3.3 cm. 5. Aorta: 3.3 cm. SUMMARY OF THE 2-DIMENSIONAL IMAGIN. Normal left ventricular cavity size. Concentric left ventricular hypertrophy. Estimated ejection fraction of 70%. The aortic valve leaflets were trileaflet, sclerosed, opening normally. Tricuspid valve was normal. Pulmonic valve was normal. 2. Peak velocity across the aortic valve less than 2 m/sec. There is no aortic stenosis or regurgitation. There is left atrial enlargement. 3. There is [id number] mitral regurgitation. There is trace tricuspid regurgitation. Peak velocity across the tricuspid valve less than 2 m/sec. There is no pericardial effusion or obvious intracardiac mass or thrombus seen. There is no aortic stenosis or regurgitation. cc: MD Shankar Ellis MD Russell T. Barr, MD
[2016-11-26] MEDS ORDERED: IMDUR PO ONE (18:02)
[2016-11-26] MEDS ORDERED: COREG PO ONE (18:02)
[2016-11-26] MEDS: COREG PO SCH (20:52)
[2016-11-26] MEDS ORDERED: LIPITOR PO SCH (21:00)
[2016-11-27] MEDS: HEPARIN SUBQ SCH ×2 (01:59→09:11)
[2016-11-27] MEDS: PRILOSEC PO SCH (06:05)
[2016-11-27] MEDS: SYNTHROID PO SCH (06:05)
[2016-11-27] MEDS: HUMULIN R SUBQ SCH (06:06)
[2016-11-27 08:08] VITALS: BP 153/67
[2016-11-27] MEDS ORDERED: IMDUR PO SCH (09:00)
[2016-11-27] MEDS ORDERED: COZAAR PO SCH (09:00)
[2016-11-27] MEDS ORDERED: VITAMIN D PO SCH (09:00)
[2016-11-27] MEDS ORDERED: ZOLOFT PO SCH (09:00)
[2016-11-27] MEDS: PLAVIX PO SCH (09:09)
[2016-11-27] MEDS: RANEXA PO SCH (09:09)
[2016-11-27] MEDS: COREG PO SCH (09:09)
[2016-11-27] MEDS: ASPIRIN PO SCH (09:10)
--- NOTE | 2016-11-27 19:23 | Carotid Study ---
DATE: 11/26/2016 PROCEDURE: Carotid duplex imaging. REFERRING PHYSICIAN: Shankar Allen MD INTERPRETING PHYSICIAN: Jonathan Pugh MD TECH: [place] INDICATIONS: TIA, headache, neck pain, right-sided numbness and weakness, and blurry vision. OBSERVED DATA RIGHT LEFT Brachial Blood Pressure Carotid Pulse Bruits: Carotid/Sub DIAGRAM OF ULTRASOUND IMAGING R L RIGHT INT EXT INT EXT LEFT Tarik (cm/s) Tarik (cm/s) Subclavian 88/0 Subclavian 92/0 CCA Proximal 74/7 CCA Proximal 54/6 CCA Distal 44/10 CCA Distal 47/9 Bulb 73/14 Bulb 39/8 ICA Proximal 69/14 ICA Proximal 47/12 ICA Mid 83/18 ICA Mid 54/16 ICA Distal 87/21 ICA Distal 102/21 ECA 68/7 ECA 92/5 Vertebral 61/13 Vertebral 56/8 ICA/CCA Ratio 1.2 ICA/CCA Ratio 1.9 % Stenosis 0-39% % Stenosis 0-39% FINDINGS: There is minimal to no atherosclerotic disease in either carotid system. There is antegrade vertebral flow bilaterally. Compared to the previous study on 08/22/2015, the small plaque in the right bulb is not easily visualized on this study. In any case, there is no significant stenosis in either carotid system. cc: MD Shankar Che MD Russell T. Barr, MD
--- NOTE | 2016-11-28 11:09 | DISCHARGE SUMMARY ---
ADMISSION DATE: 11/26/2016 DISCHARGE DATE: 11/27/2016 FINAL DIAGNOSES: 1. Transient right neck pain and headache with transient numbness and tingling, possible transient ischemic attack. 2. Longstanding type 2 diabetes mellitus with peripheral neuropathy. 3. Coronary artery disease, status post coronary artery bypass graft. 4. Hypothyroidism, replaced. PRESENT ILLNESS: Mrs. Cr is a 76-year-old, black female, with a long history of type 2 diabetes mellitus and hypertension. She presented to the emergency room via ambulance after experiencing intermittent right-sided neck pain radiating into her occipital region and also intermittent right arm and leg numbness and tingling. She had previously been hospitalized for a TIA several years ago which caused some balance problems and possibly weakness of the right arm and leg. The paramedics prior to transport checked her fingerstick blood sugar and it was noted to be 52. She was brought to the emergency room where the blood sugar was 87. On arrival her numbness and tingling had improved and was only present in proximal right leg to some degree. She denied any difficulty walking or talking, chewing or swallowing. PHYSICAL EXAMINATION: Revealed mildly hypertensive vital signs with normal heart rate and O2 saturation. There was no facial asymmetry or weakness noted. Pupils were equal, round, reactive to light. Neck was supple and there was no tenderness to the paraspinous muscles. Lungs were clear. Cardiac Exam: Regular rate and rhythm. No murmurs. Abdomen: Soft, obese and nontender. Extremities: No edema. Neurologic Exam: Nonfocal with normal mental status. LABORATORY: Sodium 146, BUN 22, creatinine 1.3. CB C was unremarkable. HOSPITAL COURSE: She had multiple imaging studies including a CT of the brain, MRI of the brain and cervical spine which showed some mild degenerative changes in the C-spine, but no abnormal cord signal or definite cervical root impingement. Brain MRI showed old chronic ischemic changes, but no new findings. This morning her blood pressure is improved on her normal medications. Her neural neurologic exam is entirely normal and her gait is normal. She seems completely recovered from whatever this episode represented and I feel she can safely return home. She has an appointment next month with the nurse practitioner, but I will have the office call her to move this appointment sooner. DISCHARGE MEDICATIONS: Aspirin 81 mg daily. Clopidogrel 75 mg daily, levothyroxine 125 mcg daily, gabapentin 300 mg q.a.m. 2 capsules at bedtime, tramadol 50 mg q. 6 hours p.r.n. for pain, Protonix 40 mg daily. atorvastatin 20 mg at bedtime, losartan 100 mg daily, ranolazine 500 mg twice a day, vitamin D3, 2000 units daily, carvedilol 12.5 mg twice a day, Imdur 60 mg 1 q.a.m., sertraline 50 mg q.a.m., lorazepam 0.5 mg b.i.d. p.r.n. for anxiety and NovoLog per insulin pump continuously per Dr. Weinberg's instructions. cc: Omero Morales MD
== END 2016-11-27 11:02 | disposition home or self-care (01) ==
LOC: ED 22:46 → EDIPHOLD 11-26 04:53 → SUATTDRO 11-26 04:53 → SUPCPDRO 11-26 04:53 → 3N 11-26 23:05
PROVIDERS: ADMIT Internal Medicine; ATTEND Internal Medicine